=== PATIENT | female | born 1930 | race Caucasian/White ===

== ENCOUNTER → 2017-09-03 | Outpatient (CLI) | payer MEDICARE, OTHER ==
[~2017-09-03] MED LIST: ACET500 PO; AMLO5 PO; ASPI81CH PO; ATOR20 PO; CALGLU500; ERGO400; ESCI10 PO; EZET10; FOSI10; HYDACE5; HYDCHL25; HYDCHL50; Inderal 20 mg T20 MG PO; LISI20 PO; METR250 PO; MULVITMINF; OXYC5 PO; POTCHL10ER; QUETIAPINE FUMA50 MG PO
[2017-09-03 16:25] LABS: Appearance, Urine Cloudy (Clear); Bilirubin, Urine Neg (Neg); Blood, Urine 1+ (Neg); Color, Urine Yellow (P-Yellow); Glucose Qualitative, Urine Neg (Neg); Ketones, Urine Neg (Neg); Leukocyte Esterase, Urine 3+ (Neg); Nitrite, Urine Neg (Neg); Protein, Urine 2+ (Neg); Specific Gravity, Urine 1.025 (1.003-1.022); Urobilinogen, Urine 1+ (Normal)
[2017-09-03 16:55] LABS: Amorphous Heavy (0-Heavy); Bacteria Few /hpf; Red Blood Cells, Urine 0-2 /hpf (0-2); Squamous Epithelial Cells Few /hpf (Few)
== END | disposition home or self-care (01) ==
LOC: OLS 13:40
PROVIDERS: Internal Medicine
DX: N39.0 Urinary tract infection, site not specified (principal)
CPT/HCPCS: 81001; 87086

== ENCOUNTER → 2018-02-10 | Outpatient (CLI) | payer MEDICARE, OTHER ==
[2018-02-10 11:45] LABS: Bilirubin, Urine Neg (Neg); Blood, Urine 1+ (Neg); Glucose Qualitative, Urine Neg (Neg); Ketones, Urine Neg (Neg); Leukocyte Esterase, Urine 3+ (Neg); Nitrite, Urine Neg (Neg); Protein, Urine 1+ (Neg); Specific Gravity, Urine 1.025 (1.003-1.022); Urobilinogen, Urine NORM (Normal)
[2018-02-10 12:15] LABS: Appearance, Urine Clear (Clear); Color, Urine Yellow (P-Yellow)
[2018-02-10 12:25] LABS: Calcium Oxalate Crystals Few /hpf
[2018-02-10 12:26] LABS: White Blood Cells, Urine 50-100 /hpf (0-5)
[2018-02-10 12:28] LABS: Bacteria Few /hpf; Squamous Epithelial Cells Mod /hpf (Few)
== END | disposition home or self-care (01) ==
LOC: LAB SHORT 11:02 → OLS 11:02
PROVIDERS: Internal Medicine
DX: R82.90 Unspecified abnormal findings in urine (principal); R10.9 Unspecified abdominal pain
CPT/HCPCS: 81001; 87086